=== PATIENT | female | born 1955 | race Caucasian/White ===

== ENCOUNTER → 2022-09-06 | Outpatient (CLI) | payer OTHER | END | disposition home or self-care (01) | LOC: RESCLI 09:22 | PROVIDERS: ATTEND Internal Medicine | DX: I10 Essential (primary) hypertension (principal); E11.9 Type 2 diabetes mellitus without complications; E78.5 Hyperlipidemia, unspecified; L65.9 Nonscarring hair loss, unspecified; J32.9 Chronic sinusitis, unspecified; E55.9 Vitamin D deficiency, unspecified; Z88.2 Allergy status to sulfonamides; Z98.890 Other specified postprocedural states; Z86.16 Personal history of COVID-19; Z79.899 Other long term (current) drug therapy ==